=== PATIENT | male | born 1970 | race Caucasian/White ===

== ENCOUNTER 2016-06-02 08:55 | Outpatient (CLI) | payer OTHER ==
[~2016-06-02 08:55] MED LIST: ACETAMINOPHEN325 MG PO; IBUPROFEN600 MG PO; LISINOPRIL/HYDR1 TA2 PO; NORCO1 TA1 PO; PERCOCET1 TA1 PO; VICODIN EQUIVAL1 TAB PO
--- NOTE | 2016-06-02 14:58 | DIAGNOSTIC IMAGING REPORT ---
PROCEDURE: CT SOFT TISSUE NECK WITH CONT INDICATION: THYROID CA, follow up TECHNIQUE: 150 ml of Isovue 300 injected intravenously and axial images were obtained from the skull base through the upper mediastinum with sagittal and coronal reformations. In addition, angled axial oblique images were obtained (avoiding dental hardware). COMPARISON: CT soft tissue neck 10/29/2015 FINDINGS: Interval thyroidectomy. Markedly improved 1.7 x 0.6 cm lymph node posterior to the left sternocleidomastoid muscle (previously 3.2 cm) with an adjacent surgical clip. Resolved previously noted 2.5 cm left supraclavicular lymph node. There has also been improvement of the sub centimeter left jugular lymph nodes, 1 cm right supraclavicular lymph node (previously 1.6 cm) and superior mediastinal lymph node 1.1 cm short axis (previously 2.6 cm). There has been no change in the 2.5 cm short axis left superior mediastinal lymph node causing some compression of the trachea. Normal nasopharynx and oropharynx. The parotid and submandibular glands are normal. Normal lung apices. A large mastoids and sinuses are clear. No suspicious osseous lesions. IMPRESSION: 1. Interval thyroidectomy with markedly improved adenopathy except for a stable 2.5 cm left superior mediastinal lymph node All CT scans at this facility use dose modulation, iterative reconstruction, and/or weight-based dosing when appropriate to reduce radiation dose to as low as reasonably achievable.
== END 2016-06-02 23:00 ==
LOC: CT SRH 08:55 → LAB SRH 08:55 → CT SRH 11:00
DX: C73 Malignant neoplasm of thyroid gland (principal); R59.0 Localized enlarged lymph nodes
CPT/HCPCS: 90047; 90074; 90193; 93140; 95059; 98035